=== PATIENT | female | born 1985 | race American Indian/Alaskan Native ===

== ENCOUNTER 2017-03-11 08:56 | Emergency (ER) | payer OTHER ==
[2017-03-11 09:05] VITALS: BMI 24.7
[2017-03-11 09:06] VITALS: RESP 17
--- NOTE | 2017-03-11 09:21 | ED PDOC ---
Arrival/HPI - General Chief Complaint: Headache Time Seen by Provider: 03/11/17 09:18 Historian: Patient - History of Present Illness Narrative History of Present Illness (Text): 03/11/17 09:10 Cayla Santana is a 32 year old female, whose past medical history includes hypertension and renal disorder, who presents to the emergency department complaining of a headache since 4 days ago. Patient also states her blood pressure has been very high (160/116) and has light sensitivity and neck pain. Patient denies fever, cough, chills, abdominal pain, nausea, chest pain, shortness of breath or other complaints. Additionally, patient notes taking Motrin x2 yesterday night. Time/Duration: < week (4 days) Symptom Onset: Sudden Symptom Course: Unchanged Associated Symptoms (Text): 03/11/17 photophobia, headache, neck pain Past Medical History - Provider Review Nursing Documentation Reviewed: Yes - Infectious Disease Hx of Infectious Diseases: None - Tetanus Immunization Tetanus Immunization: Unknown - Cardiac Hx Hypertension: Yes Hx Pacemaker: No - Neurological Hx Paralysis: No - Renal Hx Renal Disorder: Yes (IJ neuropathy) - Hematological/Oncological Hx Blood Transfusions: No - Musculoskeletal/Rheumatological Hx Musculoskeletal Disorders: No - Psychiatric Hx Depression: No Hx Emotional Abuse: No Hx Physical Abuse: No Hx Substance Use: No - Past Surgical History Past Surgical History: No Previous - Surgical History Other/Comment: kidney biopsy - Anesthesia Hx Anesthesia: Yes Hx Anesthesia Reactions: No Hx Malignant Hyperthermia: No - Suicidal Assessment Feels Threatened In Home Enviroment: No Family/Social History - Physician Review Nursing Documentation Reviewed: Yes Family/Social History: Unknown Family HX Smoking Status: Never Smoked Hx Alcohol Use: Yes (OCCASIONAL) Hx Substance Use: No Hx Substance Use Treatment: No Allergies/Home Meds Allergies/Adverse Reactions: Allergies clindamycin Allergy (Severe, Verified 03/11/17 09:10) RASH Penicillins Allergy (Severe, Verified 03/11/17 09:10) RASH Home Medications: Home Meds Medication Instructions Recorded Confirmed Metoprolol Succinate 50 mg PO QPM 11/10/15 03/11/17 Azilsartan Med/Chlorthalidone 40 mg PO ONCE 03/11/17 03/11/17 [Edarbyclor 40-12.5 mg Tablet] Review of Systems - Review of Systems Constitutional: absent: Fevers Eyes: Photophobia Respiratory: absent: SOB, Cough Cardiovascular: absent: Chest Pain Gastrointestinal: absent: Abdominal Pain, Nausea, Vomiting Genitourinary Female: absent: Frequency Musculoskeletal: Neck Pain Neurological: Headache. absent: Dizziness Physical Exam Vital Signs Reviewed: Yes Vital Signs Temp Pulse Resp BP Pulse Ox 03/11/17 12:14 98.2 F 82 17 113/82 98 03/11/17 10:51 66 17 114/78 100 03/11/17 09:05 98.1 F 71 17 136/95 H 98 Temperature: Afebrile Blood Pressure: Hypertensive Pulse: Regular Respiratory Rate: Normal Appearance: Positive for: Well-Appearing, Non-Toxic, Comfortable Pain Distress: None Mental Status: Positive for: Alert and Oriented X 3 - Systems Exam Head: Present: Atraumatic, Normocephalic Pupils: Present: PERRL Extroacular Muscles: Present: EOMI Conjunctiva: Present: Normal Neck: Present: Normal Range of Motion. No: MIDLINE TENDERNESS, Paraspinal Tenderness Respiratory/Chest: Present: Clear to Auscultation, Good Air Exchange. No: Respiratory Distress, Accessory Muscle Use, Wheezes, Rales, Rhonchi Cardiovascular: Present: Regular Rate and Rhythm, Normal S1, S2. No: Murmurs Abdomen: Present: Normal Bowel Sounds. No: Tenderness, Distention, Peritoneal Signs, Rebound, Guarding Upper Extremity: Present: Normal Inspection, Normal ROM, NORMAL PULSES, Neurovascularly Intact. No: Cyanosis, Edema Lower Extremity: Present: Normal Inspection, NORMAL PULSES, Normal ROM, Neurovascularly Intact. No: Edema Neurological: Present: GCS=15, CN II-XII Intact, Speech Normal, Motor Func Grossly Intact, Normal Sensory Function Skin: Present: Warm, Dry, Normal Color. No: Rashes Psychiatric: Present: Alert, Oriented x 3, Normal Insight, Normal Concentration Medical Decision Making ED Course and Treatment: 03/11/17 Impression: 32 year old female with headache and photophobia since 4 days ago. On exam neurological exam is normal. Differential Diagnosis included but are not limited to: Plan: -- CT Head -- Labs -- Urinalysis -- Reglan -- Reassess and disposition Progress Notes: 03/11/17 10:[address]: Creator: Muriel Gonzalez MD COMPARISON:05/31/2016. FINDINGS: HEMORRHAGE: No intracranial hemorrhage. BRAIN: Castillo-white matter differentiation is preserved. There is no mass, mass effect or abnormal extra-axial fluid collection. VENTRICLES: The ventricles are normal in size, shape and configuration. CALVARIUM: The skull base and calvarium are normal. PARANASAL SINUSES: Predominantly clear. MASTOID AIR CELLS: Predominantly clear. OTHER FINDINGS: None. IMPRESSION: No acute intracranial abnormality. 03/11/17 11:49 Reevaluation: On reevaluation the patient feels better and is in no acute distress. I have discussed the results and plan with the patient, who expresses understanding. Patient given the opportunity to ask question, all questions were answered and there is agreement with the plan to discharge the patient home. Patient is also aware of her low white count and is stable for discharge. Patient was instructed to follow up with her PMD. - Lab Interpretations Microbiology Results: Microbiology Results 03/11/17 09:57 Urine,Clean Catch Urine Culture - Final Gram Positive Cocci Lab Results: 03/11/17 09:56 03/11/17 09:56 Lab Results 03/11/17 09:57: Urine Color Yellow, Urine Appearance Clear, Urine pH 6.5, Ur Specific [place] 1.020, Urine Protein Negative, Urine Glucose (UA) Negative, Urine Ketones Negative, Urine Blood Negative, Urine Nitrate Negative, Urine Bilirubin Negative, Urine Urobilinogen 0.2, Ur Leukocyte Esterase Negative 03/11/17 09:56: Sodium 142, Potassium 4.2, Chloride 105, Carbon Dioxide 29, Anion Gap 12, BUN 15, Creatinine 0.9, Est GFR ( Amer) > 60, Est GFR (Non- Af Amer) > 60, Random Glucose 87, Calcium 9.4, Total Bilirubin 0.7, AST 21, ALT 27, Alkaline Phosphatase 35 L, Total Protein 7.3, Albumin 4.0, Globulin 3.3, Albumin/Globulin Ratio 1.2 03/11/17 09:56: WBC 2.7 L* D, RBC 5.07, Hgb 14.7, Hct 44.7, MCV 88.2, MCH 29.0, MCHC 32.9, RDW 14.2, Plt Count 157, MPV 11.7 H, Gran % 43.8 L, Lymph % (Auto) 41.9 H, [place] % (Auto) 8.8 H, Eos % (Auto) 4.0, Baso % (Auto) 1.5, Gran # 1.19 L , Lymph # 1.1 L, [place] # 0.2, Eos # 0.1, Baso # 0.04 I have reviewed the lab results: Yes - RAD Interpretation Radiology Orders: 03/11/17 09:26 HEAD W/O CONTRAST [CT] Stat Row Boss: Radiologist - Medication Orders Current Medication Orders: Discontinued Medications Metoclopramide HCl 10 mg/ (Sodium Chloride) 52 mls @ 200 mls/hr IV STAT STA Stop: 03/11/17 09:40 Metoclopramide HCl 10 mg/ (Sodium Chloride) 102 mls @ 200 mls/hr IV STAT STA Stop: 03/11/17 10:05 Last Admin: 03/11/17 09:53 Dose: 200 mls/hr eMAR Start Stop Document 03/11/17 09:53 IT (Rec: 03/11/17 09:53 IT [id number]) Intravenous Solution Start Date 03/11/17 Start Time 09:53 Ketorolac Tromethamine (Toradol) 30 mg IV ONCE ONE Stop: 03/11/17 11:38 Last Admin: 03/11/17 12:04 Dose: 30 mg eMAR Start Stop Document 03/11/17 12:04 IT (Rec: 03/11/17 12:04 IT [id number]) Intravenous Solution Start Date 03/11/17 Start Time 12:04 MAR Pain Assessment Document 03/11/17 12:04 IT (Rec: 03/11/17 12:04 IT [id number]) Pain Reassessment Is this a pain reassessment? No Sleep Is patient sleeping during reassessment? 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 I have reviewed the chart and agree that the record accurately reflects my personal performance of the history, physical exam, medical decision making, and the department course for this patient. I have also personally directed, reviewed, and agree with the discharge instructions and disposition. Disposition/Present on Arrival - Present on Arrival Any Indicators Present on Arrival: No History of DVT/PE: No History of Uncontrolled Diabetes: No Urinary Catheter: No History of Decub. Ulcer: No History Surgical Site Infection Following: None - Disposition Have Diagnosis and Disposition been Completed?: Yes Diagnosis: Migraine Disposition: HOME/ ROUTINE Disposition Time: 11:40 Patient Plan: Discharge Condition: IMPROVED Discharge Instructions (ExitCare): Migraine Headache (ED) Additional Instructions: follow up with your neurologist in 1-2 days for further workup and treatment of headaches also follow up with your primary doctor for your low white blood cell count return to the ED with any worsening or concerning symptoms Referrals: Britton Yarbrough MD [Staff Provider] - Follow up with primary Arnulfo Matt MD [Primary Care Provider] - Follow up with primary Forms: [facility] (Mongolian), WORK NOTE
[2017-03-11] MEDS ORDERED: METOCLOPRAMIDE IV STA (09:35)
[2017-03-11] MEDS ORDERED: SODIUM CHLORIDE 0.9% IV STA (09:35)
--- NOTE | 2017-03-11 09:55 | CT ---
PROCEDURE: CT HEAD WITHOUT CONTRAST. HISTORY: Headache COMPARISON: 05/31/2016. TECHNIQUE: Axial computed tomography images were obtained through the head/brain without intravenous contrast. Radiation dose: Total exam DLP = 678.13 mGy-cm. This CT exam was performed using one or more of the following dose reduction techniques: Automated exposure control, adjustment of the mA and/or kV according to patient size, and/or use of iterative reconstruction technique. FINDINGS: HEMORRHAGE: No intracranial hemorrhage. BRAIN: Castillo-white matter differentiation is preserved. There is no mass, mass effect or abnormal extra-axial fluid collection. VENTRICLES: The ventricles are normal in size, shape and configuration. CALVARIUM: The skull base and calvarium are normal. PARANASAL SINUSES: Predominantly clear. MASTOID AIR CELLS: Predominantly clear. OTHER FINDINGS: None. IMPRESSION: No acute intracranial abnormality.
[2017-03-11 10:04] LABS: BASO # 0.04 K/mm3 (0.0-2.0); BASO % 1.5 % (0.0-3.0); EOS # 0.1 (0.0-0.7); GRAN # 1.19 (1.4-6.5); GRAN % 43.8 % (50.0-68.0); HEMATOCRIT 44.7 % (36.0-48.0); LYMPH # 1.1 (1.2-3.4); LYMPH % 41.9 % (22.0-35.0); MEAN CELL VOLUME 88.2 fl (80.0-105.0); MEAN CORPUSCULAR HGB CONC 32.9 g/dl (31.0-37.0); MEAN PLATELET VOLUME 11.7 fl (7.0-11.0); MONO # 0.2 (0.1-0.6); MONO % 8.8 % (1.0-6.0); RED CELL DISTRIBUTION WIDTH 14.2 % (11.5-14.5)
[2017-03-11 10:05] LABS: WHITE BLOOD COUNT 2.7 10^3/ul (4.5-11.0)
[2017-03-11 10:06] LABS: PH,URINE 6.5 (4.7-8.0); URINE BILIRUBIN NEGATIVE (NEGATIVE); URINE BLOOD NEGATIVE (NEGATIVE); URINE GLUCOSE (UA) NEGATIVE (NEGATIVE); URINE KETONE NEGATIVE (NEGATIVE); URINE LEUKOCYTE ESTERASE NEGATIVE Leu/uL (NEGATIVE); URINE PROTEIN NEGATIVE mg/dL (<30 mg/dL); URINE UROBILINOGEN 0.2 E.U./dL (<1 E.U./dL)
[2017-03-11 10:11] LABS: URINE APPEARANCE CLEAR (CLEAR); URINE COLOR YELLOW (YELLOW)
[2017-03-11 10:13] LABS: ALB/GLOB RATIO 1.2 (1.1-1.8); ALKALINE PHOSPHATASE 35 U/L (38-126); ALT/SGPT 27 U/L (7-56); AST/SGOT 21 U/L (14-36); BILIRUBIN,TOTAL 0.7 mg/dL (0.2-1.3); BLOOD UREA NITROGEN 15 mg/dL (7-21); CALCIUM 9.4 mg/dL (8.4-10.5); CARBON DIOXIDE 29 mmol/L (21-33); CHLORIDE 105 mmol/L (98-107); GFR AFRICAN-AMERICAN > 60; GLUCOSE,RANDOM 87 mg/dL (70-110); POTASSIUM 4.2 mmol/L (3.6-5.0); SODIUM 142 mmol/L (132-148); TOTAL PROTEIN 7.3 g/dL (5.8-8.3)
[2017-03-11 12:17] VITALS: BP 113/82; PULSE 82; TEMP 98.2; O2SAT 98
== END 2017-03-11 12:25 | disposition home or self-care (01) ==
LOC: ED 08:56
DX: G43.909 Migraine, unspecified, not intractable, without status migrainosus (principal); I10 Essential (primary) hypertension; Z88.0 Allergy status to penicillin
CPT/HCPCS: 70450; 80053; 81003; 85025; 87086; 96374; 96375; 99285; J1885; J2765

== ENCOUNTER 2017-10-13 19:16 | Emergency (ER) | payer MEDICAID, OTHER ==
[2017-10-13 19:20] VITALS: BMI 26.4
[2017-10-13 19:26] VITALS: O2SAT 99
[2017-10-13 20:12] VITALS: BP 130/85; PULSE 70; RESP 18; TEMP 99
--- NOTE | 2017-10-13 20:16 | ED PDOC ---
Arrival/HPI - General Historian: Patient - History of Present Illness Time/Duration: < week Symptom Onset: Gradual Symptom Course: Unchanged Quality: Pressure, Throbbing <Skinny Walker - Last Filed: 10/13/17 20:07> <Pebbles Sheets - Last Filed: 10/13/17 22:00> - General Chief Complaint: ENT Problem Time Seen by Provider: 10/13/17 19:29 - History of Present Illness Narrative History of Present Illness (Text): 10/13/17 20:07 Pt is a 32 yo F with PMH of IgA nephropathy and HTN presents to ED due to left ear pain that radiates down side of her neck. Patient states that pain has been there for 4 days without any inciting factors. Patient denies any recent sick contacts, discharge from ear, tinnitus, [place], or dizziness. Patient also admits to jaw pain. Patient denies sinus pain/pressure/congestion, throat pain, cough, SOB, CP, abdominal pain, fever, chills, [place], or dizziness. 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 - Neurological Hx Paralysis: No - Renal Hx Renal Disorder: Yes (IJ neuropathy) - Hematological/Oncological Hx Blood Transfusions: No - Musculoskeletal/Rheumatological Hx Musculoskeletal Disorders: No - Psychiatric Hx Depression: No Hx Emotional Abuse: No Hx Physical Abuse: No Hx Substance Use: No - Past Surgical History Past Surgical History: No Previous - Surgical History Other/Comment: kidney biopsy - Anesthesia Hx Anesthesia: Yes Hx Anesthesia Reactions: No Hx Malignant Hyperthermia: No - Suicidal Assessment Feels Threatened In Home Enviroment: No <Skinny Walker - Last Filed: 10/13/17 20:07> Family/Social History - Physician Review Nursing Documentation Reviewed: Yes Family/Social History: No Known Family HX Smoking Status: Never Smoked Hx Alcohol Use: Yes (OCCASIONAL) Hx Substance Use: No Hx Substance Use Treatment: No <Skinny Walker - Last Filed: 10/13/17 20:07> Allergies/Home Meds <Skinny Walker - Last Filed: 10/13/17 20:07> <Pebbles Sheets - Last Filed: 10/13/17 22:00> Allergies/Adverse Reactions: Allergies clindamycin Allergy (Severe, Verified 03/11/17 09:10) RASH Penicillins Allergy (Severe, Verified 03/11/17 09:10) RASH Home Medications: Home Meds Medication Instructions Recorded Confirmed Metoprolol Succinate 50 mg PO QPM 11/10/15 10/13/17 Azilsartan Med/Chlorthalidone 40 mg PO ONCE 03/11/17 10/13/17 [Edarbyclor 40-12.5 mg Tablet] Review of Systems - Physician Review All systems were reviewed & negative as marked: Yes (12 point ROS reviewed and is negative other that what is stated in HPI.) <Skinny Walker - Last Filed: 10/13/17 20:07> Physical Exam Vital Signs Reviewed: Yes Temperature: Afebrile Blood Pressure: Normal Pulse: Regular Respiratory Rate: Normal Appearance: Positive for: Non-Toxic Pain Distress: Mild Mental Status: Positive for: Alert and Oriented X 3 - Systems Exam Head: Present: Atraumatic, Normocephalic Pupils: Present: PERRL Extroacular Muscles: Present: EOMI Conjunctiva: Present: Normal Ears: Present: NORMAL TM, Normal Canal. No: Erythema, TM Bulging, Fluid, TM Perf Mouth: Present: Moist Mucous Membranes, Other (Tender left TMJ audible/palpible click with opening and closing of mouth; normal oral mucosa, no signs of erythema, abscess, parotitis) Pharnyx: Present: Normal. No: ERYTHEMA, EXUDATE, TONSILS ENLARGED Neck: No: Normal Range of Motion (right sidebending limited 2/2 pain) Respiratory/Chest: Present: Clear to Auscultation. No: Wheezes, Rales, Rhonchi Cardiovascular: Present: Regular Rate and Rhythm, Normal S1, S2. No: Murmurs, Rub, Gallop Abdomen: No: Tenderness, Distention, Rebound, Guarding Upper Extremity: Present: Normal Inspection Lower Extremity: Present: Normal Inspection Neurological: Present: GCS=15, CN II-XII Intact, Speech Normal Skin: Present: Warm, Dry, Normal Color. No: Rashes Psychiatric: Present: Alert, Oriented x 3, Normal Insight, Normal Concentration <Skinny Walker - Last Filed: 10/13/17 20:07> Vital Signs Temp Pulse Resp BP Pulse Ox 10/13/17 20:08 99 F 70 18 130/85 99 10/13/17 19:17 99.2 F 74 16 134/89 99 Medical Decision Making <Skinny Walker - Last Filed: 10/13/17 20:07> <Pebbles Sheets - Last Filed: 10/13/17 22:00> ED Course and Treatment: 10/13/17 20:19 32 yo F presents to ED with L jaw pain/ear pain. Plan: - Tylenol, no NSAIDs due to h/o nephropathy - Valium Rx - Advised patient not to operate heavy machinery while taking Valium - Discharge and dental follow up recommended (Skinny Walker) - Medication Orders Current Medication Orders: Discontinued Medications Acetaminophen (Tylenol 325mg Tab) 975 mg PO STAT STA Stop: 10/13/17 19:56 Last Admin: 10/13/17 20:00 Dose: 975 mg MAR Pain/Vitals Document 10/13/17 20:00 LA (Rec: 10/13/17 20:00 LA [id number]) Pain Reassessment Is This A Pain ReAssessment? No Sleep Is patient sleeping during reassessment? No Presence of Pain Presence of Pain Yes Pain Scale Used Pain Scale Used Numeric Location Left, Right or Bilateral Left Pain Location Body Site Ear Description Intermittent Intensity 5 Scale Used Numeric - PA / EDGE STRIPPER / Resident Statement MD/DO has reviewed & agrees with the documentation as recorded. <Pebbles Sheets - Last Filed: 10/13/17 22:00> Disposition/Present on Arrival - Present on Arrival Any Indicators Present on Arrival: No History of DVT/PE: No History of Uncontrolled Diabetes: No Urinary Catheter: No History of Decub. Ulcer: No History Surgical Site Infection Following: None - Disposition Have Diagnosis and Disposition been Completed?: Yes Disposition Time: 20:22 Patient Plan: Discharge <Skinny Walker - Last Filed: 10/13/17 20:07> <Pebbles Sheets - Last Filed: 10/13/17 22:00> - Disposition Diagnosis: TMJ (temporomandibular joint syndrome) Disposition: HOME/ ROUTINE Condition: STABLE Discharge Instructions (ExitCare): Temporomandibular Joint (TMJ) Disorders (DC) Additional Instructions: 1. Follow up with Dentist as scheduled 2. Use tylenol as needed for pain 3. Use Valium as needed for Jaw/neck pain 4. Do not operate heavy machinery while taking Valium 5. Return to ED if symptoms worsen Prescriptions: Diazepam [Valium] 2 mg PO Q8H PRN #8 tablet PRN Reason: Jaw Pain Referrals: Arnulfo Matt MD [Primary Care Provider] - Follow up with primary Forms: [facility] (Upper Sorbian)
== END 2017-10-13 20:08 | disposition home or self-care (01) ==
LOC: ED 19:16
DX: M26.602 Left temporomandibular joint disorder, unspecified (principal)

== ENCOUNTER 2017-12-04 18:23 | Emergency (ER) | payer MEDICAID ==
[2017-12-04 18:57] VITALS: BMI 26.5
[2017-12-04] MEDS ORDERED: Sodium Chloride 0.9% 1,000 ML IV STA (19:03)
--- NOTE | 2017-12-04 19:11 | ED PDOC ---
Arrival/HPI - General Historian: Patient - History of Present Illness Time/Duration: Other (see hpi) Context: Home <Lucas Hudson - Last Filed: 12/04/17 21:06> <Arnulfo Andres - Last Filed: 12/04/17 21:14> - General Time Seen by Provider: 12/04/17 18:43 - History of Present Illness Narrative History of Present Illness (Text): 12/04/17 19:07 This 32 yo female with pmh hypertension, 2nd degree heart block, presents to this emergency department complaining of feeling "weak" since this morning. Patient stated feeling dizzy when she tried to stand up. Patient described dizziness as "room spinning". Patient denies chest pain, shortness of breath, diplopia, dysarthria, urinary symptoms, fever, abdominal pain, n/v, or cms. ( Lucas Hudson) Past Medical History - Provider Review Nursing Documentation Reviewed: Yes - Infectious Disease Hx of Infectious Diseases: None - Tetanus Immunization Tetanus Immunization: Unknown - Cardiac Hx Hypertension: Yes Hx Pacemaker: No Other/Comment: 2nd degree heart block - Neurological Hx Paralysis: No - Renal Hx Renal Disorder: Yes (IJ neuropathy) - Hematological/Oncological Hx Blood Transfusions: No - Musculoskeletal/Rheumatological Hx Musculoskeletal Disorders: No - Psychiatric Hx Depression: No Hx Emotional Abuse: No Hx Physical Abuse: No Hx Substance Use: No - Past Surgical History Past Surgical History: No Previous - Surgical History Other/Comment: kidney biopsy - Anesthesia Hx Anesthesia: Yes Hx Anesthesia Reactions: No Hx Malignant Hyperthermia: No - Suicidal Assessment Feels Threatened In Home Enviroment: No <Lucas Hudson - Last Filed: 12/04/17 21:06> Family/Social History - Physician Review Nursing Documentation Reviewed: Yes Family/Social History: Other (noncontributory) Smoking Status: Never Smoked Hx Alcohol Use: Yes (OCCASIONAL) Hx Substance Use: No Hx Substance Use Treatment: No <Lucas Hudson - Last Filed: 12/04/17 21:06> Allergies/Home Meds <Lucas Hudson - Last Filed: 12/04/17 21:06> <Arnulfo Andres - Last Filed: 12/04/17 21:14> Allergies/Adverse Reactions: Allergies clindamycin Allergy (Severe, Verified 03/11/17 09:10) RASH Penicillins Allergy (Severe, Verified 03/11/17 09:10) RASH Home Medications: Home Meds Medication Instructions Recorded Confirmed Metoprolol Succinate 50 mg PO QPM 11/10/15 10/13/17 Azilsartan Med/Chlorthalidone 40 mg PO ONCE 03/11/17 10/13/17 [Edarbyclor 40-12.5 mg Tablet] Review of Systems - Review of Systems Constitutional: Normal. absent: Fatigue, Weight Change, Fevers, Night Sweats Eyes: Normal. absent: Vision Changes, Photophobia, Eye Pain ENT: Normal Respiratory: Normal. absent: SOB, Cough Cardiovascular: Normal Gastrointestinal: Normal. absent: Abdominal Pain, Nausea, Vomiting Genitourinary Female: Normal. absent: Dysuria, Frequency, Hematuria Musculoskeletal: Normal Skin: Normal. absent: Rash Neurological: Dizziness. absent: Headache, Focal Weakness, Gait Changes, Speech Changes, Facial Droop, Disequilibrium Endocrine: Normal Hemo/Lymphatic: Normal Psychiatric: Normal <Lucas Hudson P - Last Filed: 12/04/17 21:06> Physical Exam Temperature: Afebrile Blood Pressure: Normal Pulse: Regular Respiratory Rate: Normal Appearance: Positive for: Well-Appearing, Non-Toxic, Comfortable Pain Distress: None Mental Status: Positive for: Alert and Oriented X 3 - Systems Exam Head: Present: Atraumatic, Normocephalic Pupils: Present: PERRL Extroacular Muscles: Present: EOMI Conjunctiva: Present: Normal Mouth: Present: Moist Mucous Membranes Neck: Present: Normal Range of Motion Respiratory/Chest: Present: Clear to Auscultation, Good Air Exchange. No: Respiratory Distress, Accessory Muscle Use Cardiovascular: Present: Regular Rate and Rhythm, Normal S1, S2. No: Murmurs Abdomen: No: Tenderness, Distention, Peritoneal Signs Back: Present: Normal Inspection. No: CVA Tenderness Upper Extremity: Present: Normal Inspection. No: Cyanosis, Edema Lower Extremity: Present: Normal Inspection. No: Edema Neurological: Present: GCS=15, CN II-XII Intact, Speech Normal, Motor Func Grossly Intact, Normal Sensory Function, Normal Cerebellar Funct, Gait Normal, Memory Normal, Other (Romberg is negative) Skin: Present: Warm, Dry, Normal Color. No: Rashes Psychiatric: Present: Alert, Oriented x 3, Normal Insight, Normal Concentration <Uhdson,Nahim P - Last Filed: 12/04/17 21:06> Vital Signs Temp Pulse Resp BP Pulse Ox 12/04/17 21:01 81 18 102/69 100 12/04/17 19:58 98.2 F 12/04/17 19:14 78 16 93/60 L 100 12/04/17 18:56 98.5 F 81 18 121/73 100 Medical Decision Making Re-evaluation Time: 21:05 Reassessment Condition: Re-examined, Improved - Lab Interpretations I have reviewed the lab results: Yes Interpretation: Abnormal lab values - EKG Interpretation Interpreted by ED Physician: Yes (NSR @ 68 bpm. Normal interval. No ST changes ) Type: 12 lead EKG Comparison: Similar to previous EKG <Lucas Hudson - Last Filed: 12/04/17 21:06> <Arnulfo Andres - Last Filed: 12/04/17 21:14> ED Course and Treatment: 12/04/17 21:05 Re-evaluation. Patient feels better. Discussed results and plan with patient who expresses understanding. All questions answered and there is agreement with the plan to discharge home with instructions. Patient stable for discharge. Return if symptoms persist or worsen. Patient feel well. Patient wishes to bed discharge home. Patient has a normal gait, and speech. No neuro focal deficits. Patient is agreeable to follow up Dr. Alexander, tomorrow (Lucas Hudson) - Lab Interpretations Lab Results: 12/04/17 19:58 12/04/17 19:58 Lab Results 12/04/17 19:58: Sodium 137, Potassium 4.1, Chloride 97 L, Carbon Dioxide 27, Anion Gap 17, BUN 25 H, Creatinine 1.1, Est GFR ( Amer) > 60, Est GFR ( Non-Af Amer) 57, Random Glucose 80, Calcium 9.4, Magnesium 1.9, Total Bilirubin 0.5, AST 21, ALT 27, Alkaline Phosphatase 43, Lactate Dehydrogenase 337, Total Creatine Kinase 47, Troponin I < 0.01, Total Protein 8.3, Albumin 4.6, Globulin 3.6, Albumin/Globulin Ratio 1.3 12/04/17 19:58: WBC 5.4 D, RBC 4.96, Hgb 14.5, Hct 42.4, MCV 85.5, MCH 29.2, MCHC 34.2, RDW 14.6 H, Plt Count 165, MPV 11.8 H, Gran % 54.2, Lymph % (Auto) 37.5 H, [place] % (Auto) 7.0 H, Eos % (Auto) 0.9 L, Baso % (Auto) 0.4, Gran # 2.93 , Lymph # (Auto) 2.0, [place] # (Auto) 0.4, Eos # (Auto) 0.1, Baso # (Auto) 0.02 12/04/17 19:15: Urine Color Yellow, Urine Appearance Sl cloudy, Urine pH 7.0, Ur Specific [place] 1.010, Urine Protein Negative, Urine Glucose (UA) Negative, Urine Ketones Negative, Urine Blood Negative, Urine Nitrate Negative, Urine Bilirubin Negative, Urine Urobilinogen 0.2, Ur Leukocyte Esterase Large H, Urine RBC Negative, Urine WBC 5 - 10, Ur Epithelial Cells 4 - 5, Urine Bacteria Few, Urine HCG, Qual Negative - RAD Interpretation Narrative RAD Interpretations (Text): 12/04/17 20:50 FINDINGS: Brain: Unremarkable. No hemorrhage. No significant white matter disease. No edema. Ventricles: Unremarkable. No ventriculomegaly. Bones/joints: Unremarkable. No acute fracture. Soft tissues: Unremarkable. Sinuses: Unremarkable as visualized. No acute sinusitis. Mastoid air cells: Unremarkable as visualized. No mastoid effusion. IMPRESSION: Normal head/brain CT (Lucas Hudson) Radiology Orders: 12/04/17 19:00 HEAD W/O CONTRAST [CT] Stat 12/04/17 19:15 CHEST PORTABLE [RAD] Stat - Medication Orders Current Medication Orders: Discontinued Medications Sodium Chloride (Sodium Chloride 0.9%) 1,000 mls @ 999 mls/hr IV .Q1H1M STA Stop: 12/04/17 20:03 Last Admin: 12/04/17 19:48 Dose: 999 mls/hr eMAR Start Stop Document 12/04/17 19:48 SS (Rec: 12/04/17 19:48 SS [id number]) Intravenous Solution Start Date 12/04/17 Start Time 19:48 End Date 12/04/17 End time 20:48 Total Infusion Time 60 Meclizine HCl (Antivert) 50 mg PO STAT STA Stop: 12/04/17 19:04 Last Admin: 12/04/17 19:46 Dose: 50 mg Metoclopramide HCl (Reglan) 10 mg IVP STAT STA Stop: 12/04/17 19:04 Last Admin: 12/04/17 19:48 Dose: 10 mg IVP Administration Document 12/04/17 19:48 SS (Rec: 12/04/17 19:48 SS [id number]) Charges for Administration # of IVP Administrations 1 Nitrofurantoin Macrocrystals (Macrobid) 100 mg PO STAT STA PRN Reason: Protocol Stop: 12/04/17 20:47 Last Admin: 12/04/17 20:56 Dose: 100 mg - PA / VETERINARY PATHOLOGIST / Resident Statement / has reviewed & agrees with the documentation as recorded. <Arnulfo Andres - Last Filed: 12/04/17 21:14> Disposition/Present on Arrival - Present on Arrival Any Indicators Present on Arrival: No History of DVT/PE: No History of Uncontrolled Diabetes: No Urinary Catheter: No History Surgical Site Infection Following: None - Disposition Have Diagnosis and Disposition been Completed?: Yes Disposition Time: 20:56 Patient Plan: Discharge <Lucas Hudson - Last Filed: 12/04/17 21:06> <Arnulfo Andres - Last Filed: 12/04/17 21:14> - Disposition Diagnosis: Benign paroxysmal positional vertigo, Urinary tract infection Disposition: HOME/ ROUTINE Patient Problems: Current Active Problems Problem Status Onset Benign paroxysmal positional vertigo Acute Urinary tract infection Acute Condition: IMPROVED Discharge Instructions (ExitCare): Urinary Tract Infection, Adult (DC), Vertigo (a Type of Dizziness) (DC) Additional Instructions: Call private doctor for follow up visit in 1-2 days. Take medication as instructed. Return to emergency if symptoms returns. Prescriptions: Meclizine [Antivert] 25 mg PO Q6 PRN #20 tab PRN Reason: Dizziness Referrals: Elly Sawyer DO [Family Provider] - Follow up with primary Forms: WORK NOTE
[2017-12-04 19:40] LABS: HCG,QUALITATIVE URINE NEGATIVE (NEGATIVE); URINE APPEARANCE SL CLOUDY (CLEAR); URINE BILIRUBIN NEGATIVE (NEGATIVE); URINE BLOOD NEGATIVE (NEGATIVE); URINE COLOR YELLOW (YELLOW); URINE GLUCOSE (UA) NEGATIVE (NEGATIVE); URINE LEUKOCYTE ESTERASE LARGE Leu/uL (NEGATIVE); URINE PROTEIN NEGATIVE mg/dL (<30 mg/dL); URINE UROBILINOGEN 0.2 E.U./dL (<1 E.U./dL)
[2017-12-04 19:51] LABS: URINE BACTERIA FEW (NEG); URINE RBC NEGATIVE /hpf (0-2)
[2017-12-04 19:59] VITALS: TEMP 98.2
[2017-12-04 20:16] LABS: HEMOGLOBIN 14.5 g/dL (12.0-16.0); MEAN CELL VOLUME 85.5 fl (80.0-105.0); MEAN CORPUSCULAR HEMOGLOBIN 29.2 pg (25.0-35.0); MEAN CORPUSCULAR HGB CONC 34.2 g/dl (31.0-37.0); RBC 4.96 10^6/uL (3.5-6.1); RED CELL DISTRIBUTION WIDTH 14.6 % (11.5-14.5); WHITE BLOOD COUNT 5.4 10^3/ul (4.5-11.0)
[2017-12-04 20:17] LABS: BASO # 0.02 K/mm3 (0.0-2.0); BASO % 0.4 % (0.0-3.0); EOS # 0.1 (0.0-0.7); EOS % 0.9 % (1.5-5.0); GRAN # 2.93 (1.4-6.5); GRAN % 54.2 % (50.0-68.0); LYMPH % 37.5 % (22.0-35.0); MEAN PLATELET VOLUME 11.8 fl (7.0-11.0); MONO # 0.4 (0.1-0.6)
[2017-12-04 20:30] LABS: ALB/GLOB RATIO 1.3 (1.1-1.8); ALBUMIN 4.6 g/dL (3.0-4.8); ALT/SGPT 27 U/L (7-56); AST/SGOT 21 U/L (14-36); BLOOD UREA NITROGEN 25 mg/dL (7-21); CALCIUM 9.4 mg/dL (8.4-10.5); GFR AFRICAN-AMERICAN > 60; GFR NON-AFRICAN AMERICAN 57
[2017-12-04 20:44] LABS: TROPONIN I < 0.01 ng/mL
[2017-12-04 21:01] VITALS: BP 102/69; PULSE 81; RESP 18
[2017-12-04 21:33] VITALS: O2SAT 99
--- NOTE | 2017-12-05 07:47 | CT ---
Date of service: 12/04/2017 PROCEDURE: CT HEAD WITHOUT CONTRAST. HISTORY: dizziness COMPARISON: None available. TECHNIQUE: Axial computed tomography images were obtained through the head/brain without intravenous contrast. Radiation dose: Total exam DLP = 857 mGy-cm. This CT exam was performed using one or more of the following dose reduction techniques: Automated exposure control, adjustment of the mA and/or kV according to patient size, and/or use of iterative reconstruction technique. FINDINGS: HEMORRHAGE: No intracranial hemorrhage. BRAIN: No mass effect or edema. No atrophy or chronic microvascular ischemic changes. VENTRICLES: Unremarkable. No hydrocephalus. CALVARIUM: Unremarkable. PARANASAL SINUSES: Unremarkable as visualized. No significant inflammatory changes. MASTOID AIR CELLS: Unremarkable as visualized. No inflammatory changes. OTHER FINDINGS: The report concurs with the preliminary [facility] report IMPRESSION: No acute intracranial finding
--- NOTE | 2017-12-05 08:26 | RAD ---
Date of service: 12/04/2017 HISTORY: dizziness COMPARISON: No prior. FINDINGS: LUNGS: The lungs are well inflated and clear. PLEURA: No significant pleural effusion identified, no pneumothorax apparent. CARDIOVASCULAR: Normal. OSSEOUS STRUCTURES: No significant abnormalities. VISUALIZED UPPER ABDOMEN: Normal. OTHER FINDINGS: None. IMPRESSION: No active pulmonary disease.
--- NOTE | 2017-12-05 15:08 | CARD ---
APPROVED REPORT Date of service: 12/04/2017 EKG Measurement Heart [id number] <Conclusion> Normal sinus rhythm Normal ECG
== END 2017-12-04 21:28 | disposition home or self-care (01) ==
LOC: ED 18:23
DX: H81.10 Benign paroxysmal vertigo, unspecified ear (principal); N39.0 Urinary tract infection, site not specified; I10 Essential (primary) hypertension
CPT/HCPCS: 70450; 71045; 80053; 81001; 81025; 82550; 83615; 83735; 84484; 84703; 85025; 87086; 93005; 96361; 96374; 99285; J2765; J7030